=== PATIENT | male | born 1935 | race Caucasian/White ===

== ENCOUNTER 2020-07-25 12:23 | Outpatient (CLI) | payer MEDICARE, OTHER, SELFPAY ==
--- NOTE | ~2020-07-25 | XR_ITS ---
EXAMINATION: XR shoulder RT min 2V DATE: 07/25/2020 12:45 INDICATION: Right shoulder pain. TECHNIQUE: 4 views of right shoulder were obtained. COMPARISON: None. FINDINGS: Bone alignment is normal. No fracture. There is mild osteoarthritis of acromioclavicular michelle int and glenohumeral joint. Pacer wires overlie the heart. IMPRESSION: 1. Mild polyarticular osteoarthritis. Reviewed, dictated and finalized at location A. IAC NURSE
== END 2020-07-25 12:24 | disposition home or self-care (01) ==
PROVIDERS: PCP Nurse Practitioner Family; Visit Provider Nurse Practitioner Family
DX: M19.011 Primary osteoarthritis, right shoulder (principal)
CPT/HCPCS: 73030

== ENCOUNTER 2020-10-14 10:01 | Emergency (ER) | payer MEDICARE, OTHER, SELFPAY ==
--- NOTE | ~2020-10-14 | XR_ITS ---
XR chest 1V portable DATE: 10/14/2020 10:32 INDICATION: Shortness of breath, wheezing and weakness for 2 days TECHNIQUE: Portable AP chest on 10/31/2020 1027 hours COMPARISON: 09/12/2017 two-view chest FINDINGS: Left-sided dual-lead pacemaker device with leads overlying right atrium and right ventricle . Normal heart size. Aortic calcification. No pulmonary infiltrate or consolidation, pleural effusion or pulmonary vascular congestion or pneumo thorax. Degenerative spurring of the thoracic spine. IMPRESSION: No active cardiac pulmonary disease Aortic atherosclerosis Dual-lead left-sided pacemaker Reviewed, dictated and finalized at location A.
[2020-10-14 10:04] VITALS: BP 128/76; PULSE 94; RESP 18; TEMP 36.7; O2SAT 99
[2020-10-14 10:53] LABS: Basophils Percent Auto 0.1 % (0.2-1.2); Eosinophils Absolute Auto 0.2 K/mm3 (0-0.3); Eosinophils Percent Auto 1.1 % (0-4.4); Hematocrit 45.8 % (42.0-52.0); Hemoglobin 15.4 g/dL (14.0-18.0); Immature Granulocyte Absolute 0.07 K/mm3 (0.00-0.031); Immature Granulocyte Percent A 0.5 % (0-0.5); Lymphocytes Absolute Auto 4.05 K/mm3 (0.9-3.2); Lymphocytes Percent Auto 28.6 % (18.3-44.2); Mean Corpuscular HGB Conc 33.6 g/dl (32-36); Mean Corpuscular Hemoglobin 34.7 pg (26-34); Mean Corpuscular Volume 103.2 fl (80-100); Mean Platelet Volume 9.9 fl (7.4-10.4); Monocytes Absolute Auto 1.2 K/mm3 (0.1-0.6); Monocytes Percent Auto 8.1 % (2.6-8.5); Neutrophils Absolute Auto 8.7 K/mm3 (1.3-6.7); Neutrophils Percent Auto 61.6 % (45.5-73.1); Platelet Count Result 190 k/mm3 (150-375); Red Blood Count 4.44 M/mm3 (4.6-6.20); Red Cell Distribution Width 13.3 % (11.5-14.5); White Blood Count 14.1 K/mm3 (4.5-10.0)
--- NOTE | 2020-10-14 10:58 | ECG_ITS ---
Measurements Intervals [place] Rate: 87 P: [place]: 0 QRS: 3 QRSD: 149 T: 130 QT: 399 QTc: 481 Interpretive Statements SINUS RHYTHM FREQUENT ATRIAL PREMATURE COMPLEXES LEFT BUNDLE BRANCH BLOCK ABNORMAL ECG Electronically Signed On 10-14-2020 11:34:15 CDT by Ace Block D.O.
[2020-10-14 11:03] LABS: Alanine Aminotransferase 42 U/L (4-50); Albumin Level 4.2 g/dL (3.5-5.1); Alkaline Phosphatase 82 U/L (38-126); Anion Gap 9 mmol/L (8-16); Aspartate Amino Transferase 159 U/L (17-59); Bilirubin,Total 1.4 mg/dL (0.2-1.3); Blood Urea Nitrogen 22 mg/dL (9-20); Carbon Dioxide 25 mmol/L (22-30); Chloride 107 mmol/L (98-107); Estimated CRCL calculation 55 ml/min; Estimated Glomerular Filt Rate > 60; Glucose 128 mg/dL (75-110); Sodium 141 mmol/L (137-145)
[2020-10-14 11:11] LABS: NT Pro B Type Natriuretic Pept 328 PG/ML (5-100)
--- NOTE | 2020-10-14 11:12 | ED.GENADULT ---
HPI - General Adult General Chief complaint: Shortness of Breath/Dyspnea Stated complaint: SOB Time Seen by Provider: 10/14/20 10:13 Source: patient and family (son &) Mode of arrival: ambulatory Limitations: other (Patient is a poor historian) History of Present Illness HPI narrative: Patient with history of a pacemaker and prostate cancer that is in remission presents with chief complaint of weakness over the past 2 days. states that he normally does into the basement every day and watches TV but yesterday he stated that he felt that he could not make it to the basement so he sat in the living room and needed assistance going back to his room. Patient states this morning he feels a bit weak so he told his family he was short of breath and they called the ambulance however he states that he was not actually short of breath. Patient denies chest pain, dizziness, falls, head injury, nausea, vomiting, diarrhea, cough, fever, chills or any other symptoms. Patient denies unilateral deficits or speech issues. Family states that patient's mentation has been at his baseline over the past few days without any new deficits. Because of patient's prostate cancer patient uses catheter to urinate. Related Data Home Medications Medication Instructions Recorded Confirmed amlodipine 2.5 10/14/20 Allergies Allergy/AdvReac Type Severity Reaction Status Date / Time No Known Allergies Allergy Verified 04/16/17 13:32 Review of Systems Review of Systems: Narrative: CONSTITUTIONAL: Reports fatigue denies fever, chills, or sweats. EYES: Denies visual changes, redness, or discharge. ENT: Denies rhinorrhea, congestion, sore throat, or otalgia. CARDIOVASCULAR: Denies chest pain, palpitations, or edema. RESPIRATORY: Denies cough or dyspnea. GASTROINTESTINAL: Denies abdominal pain, nausea, vomiting, or diarrhea. GENITOURINARY: Denies dysuria or hematuria. SKIN: Denies rash or itching. MUSCULOSKELETAL: Denies back pain, joint pain, or myalgia. NEUROLOGIC: Denies headache, numbness, dizziness, or extremity weakness. PSYCHIATRIC: Denies anxiety or depression. [facility] Past Medical History Medical History (Updated 10/14/20 @ 13:37 by Gideon Kaur PA-C) Prostate cancer Exam Narrative: Exam Narrative: GENERAL: Well-appearing, well-nourished, and in no acute distress. Patient is a poor historian. HEAD: Normocephalic, atraumatic. No hematomas or lacerations. EYES: PERRLA and EOMI. NECK: Supple. No adenopathy or masses. CHEST: Clear to auscultation. No respiratory distress. No wheezes rales or rhonchi. No tachypnea. Patient speaking without signs of shortness of breath or difficulty. HEART: Regular rate with irregular rhythm. ABDOMEN: Soft, nontender, nondistended, normal active bowel sounds. EXTREMITIES: Normal range of motion. No edema. SKIN: Warm, dry, no rash. NEURO: No focal deficits. Alert and oriented x3. Speech is clear and appropriate. No unilateral deficits or extremity weakness. PSYCH: Normal mood and affect. Course Vital Signs Vital signs: Vital Signs Temperature 98.1 F 10/14/20 10:04 Pulse Rate 94 10/14/20 10:04 Respiratory Rate 18 10/14/20 10:04 Blood Pressure 128/76 10/14/20 10:04 Pulse Oximetry 99 10/14/20 10:04 Temperature 98.1 F 10/14/20 10:04 Pulse Rate 77 10/14/20 11:56 Respiratory Rate 18 10/14/20 10:04 Blood Pressure 137/62 10/14/20 11:56 Pulse Oximetry 99 10/14/20 10:04 Medical Decision Making MDM Narrative Medical decision making narrative: Patient is a poor historian. Patient and his family believes he has a history of A. fib. Patient had a pacemaker placed a few years ago, but is not sure if it is because of afib or bradycardia. Patient takes amlodipine daily and a baby aspirin at night but is not on any blood thinners. Patient denies feeling dizzy, weak, having chest pain or shortness of breath. Patient denies any signs of acute illness. Patient is not hyp
--- NOTE | 2020-10-14 11:30 | PC.NURSE ---
Regarding cath, first attempt ended after failure to advance past prostate (potentially). Withdrew coude from pyxis and attempted again, found success.
[2020-10-14 11:37] LABS: Add Urine Microscopic? YES; Appearance Urine Cloudy (Clear); Bacteria Urine 4+ /hpf; Bilirubin Urine Negative (Negative); Blood Urine 1+ (Negative); Color Urine Yellow (Yellow); Glucose Urine UA Negative (Negative); Ketones Urine Trace mg/dL (Negative); Leukocyte Esterase Ur 3+ LEU/UL (Negative); Mucus Urine Rare /lpf; Nitrate Urine Positive (Negative); Protein Urine 1+ mg/dL (Negative); Specific Grav Ur 1.024 (1.001-1.035); Squamous Epithelial Cell Urine Occasional /hpf (Few); Urobilinogen Urine Negative mg/dL (<2.0); WBC Urine 31-50 /hpf
[2020-10-14 11:55] VITALS: BP 113/78; PULSE 102
[2020-10-14 11:56] VITALS: BP 128/59; BP 137/62; PULSE 76; PULSE 77
== END 2020-10-14 13:18 | disposition home or self-care (01) ==
PROVIDERS: Physician Assistant; Emergency Provider Family Medicine; PCP Nurse Practitioner Family
DX: N30.01 Acute cystitis with hematuria (principal); Z95.0 Presence of cardiac pacemaker; Z85.46 Personal history of malignant neoplasm of prostate; Z79.82 Long term (current) use of aspirin; I49.1 Atrial premature depolarization; I44.7 Left bundle-branch block, unspecified; R06.02 Shortness of breath
CPT/HCPCS: 36415; 51701; 71045; 80053; 81001; 83880; 85025; 87077; 87086; 87088; 87186; 93005; 99283

== ENCOUNTER 2022-10-27 09:34 | Emergency (ER) | payer MEDICARE, OTHER, SELFPAY ==
[2022-10-27] VITALS (19 sets, daily range): BP systolic 98–119; BP diastolic 51–73; PULSE 68–89; RESP 15–24; TEMP 36.4; O2SAT 93–100
--- NOTE | ~2022-10-27 | CT_ITS ---
EXAMINATION: CTA chest PE protocol DATE: 10/27/2022 11:32 INDICATION: Left-sided chest pain TECHNIQUE: Computed tomography angiography (CTA) of the chest was performed with 100 mL Omnipaque-350 intravenous contrast timed to evaluate the pulmonary arteries. Coronal maximum intensity projection 3D-reconstructions were created by the technologist. The dose-length product (DLP) was 706.83 mGy-cm. Automated exposure control and iterative reconstruction technique were employed. COMPARISON: None. FINDINGS: The pulmonary arteries are well-opacified. Respiratory motion artifact limits the examinati on. No central pulmonary embolism is identified. There is a small to moderate size right pleural effu tarun with associated passive atelectasis in the right lung. There appear to be subpleural reticular a nd groundglass opacities bilaterally. There is a 7 mm nodule in the right middle lobe. No pathologica lly enlarged thoracic lymph nodes are identified. The heart size is normal. There is calcified lainez ry artery atherosclerosis. There is moderate thoracic spondylosis. IMPRESSION: 1. No central pulmonary embolus identified. Sensitivity for peripheral emboli is decreased by respira tory motion. 2. Xfwkx-oa-pgljerwi size right pleural effusion with associated passive atelectasis in the right roselyn g. 3. Findings suggestive of chronic interstitial lung disease in a pattern of nonspecific interstitial pneumonia (NSIP). 4. 7 mm nodule of the right middle lobe. Follow-up CT in 6-12 months is recommended. Reviewed, dictated and finalized at location A. IMPRESSION: 1. No central pulmonary embolus identified. Sensitivity for peripheral emboli i s decreased by respiratory motion. 2. Xvvtc-wq-ylvsxxvd size right pleural effusion with associated passive atelec tasis in the right lung. 3. Findings suggestive of chronic interstitial lung disease in a pattern of non specific interstitial pneumonia (NSIP). 4. 7 mm nodule of the right middle lobe. Follow-up CT in 6-12 months is recomme nded.
[2022-10-27 10:50] LABS: Basophils Percent Auto 0.2 % (0.2-1.2); Eosinophils Absolute Auto 0.7 K/mm3 (0-0.3); Eosinophils Percent Auto 5.4 % (0-4.4); Hematocrit 40.3 % (42.0-52.0); Hemoglobin 13.5 g/dL (14.0-18.0); Immature Granulocyte Absolute 0.07 K/mm3 (0.00-0.031); Immature Granulocyte Percent A 0.5 % (0-0.5); Lymphocytes Percent Auto 22.5 % (18.3-44.2); Mean Corpuscular HGB Conc 33.5 g/dl (32-36); Mean Corpuscular Hemoglobin 34.7 pg (26-34); Mean Corpuscular Volume 103.6 fl (80-100); Mean Platelet Volume 9.8 fl (7.4-10.4); Monocytes Absolute Auto 0.9 K/mm3 (0.1-0.6); Monocytes Percent Auto 6.8 % (2.6-8.5); Neutrophils Absolute Auto 8.9 K/mm3 (1.3-6.7); Neutrophils Percent Auto 64.6 % (45.5-73.1); Platelet Count Result 277 k/mm3 (150-375); Red Blood Count 3.89 M/mm3 (4.6-6.20); Red Cell Distribution Width 13.2 % (11.5-14.5); White Blood Count 13.8 K/mm3 (4.5-10.0)
[2022-10-27 11:00] LABS: Alanine Aminotransferase 30 U/L (6-50); Alkaline Phosphatase 66 U/L (38-126); Anion Gap 3 mmol/L (8-16); Aspartate Amino Transferase 31 U/L (17-59); Bilirubin,Total 0.7 mg/dL (0.2-1.3); Blood Urea Nitrogen 19 mg/dL (9-20); Calcium 8.2 mg/dL (8.4-10.2); Carbon Dioxide 29 mmol/L (22-30); Chloride 104 mmol/L (98-107); Estimated CRCL calculation 64 ml/min; Estimated Glomerular Filt Rate > 60; Glucose 116 mg/dL (65-110); Potassium 4.2 mmol/L (3.4-5.0); Sodium 136 mmol/L (137-145)
--- NOTE | 2022-10-27 11:06 | ECG_ITS ---
Measurements Intervals [place] Rate: 85 P: -22 DE: 180 QRS: -79 QRSD: 154 T: 77 QT: 426 QTc: 508 Interpretive Statements NORMAL SINUS RHYTHM WITH A POSSIBLE eLECTRONIC VENTRICULAR PACEMAKER VERSUS LBBB COMPARED TO ECG 10/14/2020 10:06:37 NO SIGNIFICANT CHANGES Electronically Signed On 10-27-2022 19:17:20 CDT by Nkechi Alegre M.D.
[2022-10-27 11:12] LABS: NT Pro B Type Natriuretic Pept 275 pg/mL (19.9-100); Troponin I < 0.012 ng/mL (0.000-0.034)
[2022-10-27 11:35] LABS: INR 1.1
[2022-10-27 11:36] LABS: Partial Thromboplastin Time 28.3 SECONDS (22.3-36.8)
--- NOTE | 2022-10-27 14:28 | ED.GENADULT ---
HPI - General Adult General Chief complaint: Chest Pain Stated complaint: CP Time Seen by Provider: 10/27/22 09:39 History of Present Illness HPI narrative: Patient is an 87-year-old male with history of dementia who presents ER with concerns for possible pulmonary embolism by the custodial. It is reported patient has a left upper extremity DVT and that he had reported some left-sided chest pain today and they are concerned that it had embolized. Patient is oriented x2. Has no complaints of pain at this time and is in no distress. He has some mild discomfort over the left lateral chest wall with palpation. He has no dyspnea. Family present report he had a brain bleed and was seen at [facility]. Thus he is no longer on any antiplatelet or or anticoagulants. 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 Related Data Home Medications Medication Instructions Recorded Confirmed acetaminophen 500 mg tablet 500 mg PO Q4H PRN 10/25/22 10/25/22 (Tylenol Extra Strength) furosemide 20 mg tablet (Lasix) 20 mg PO QAM 10/25/22 10/25/22 gabapentin 100 mg capsule 100 mg PO QHS 10/25/22 10/25/22 Allergies Allergy/AdvReac Type Severity Reaction Status Date / Time No Known Allergies Allergy Verified 10/27/22 10:42 Review of Systems Review of Systems: ROS unobtainable: Yes unobtainable due to mental status PMFSH Past Medical History Medical History (Updated 10/27/22 @ 14:46 by Fareed Escalante MD) Dementia Hyperlipidemia Hypertension Myocardial infarction Nontraumatic chronic subdural hemorrhage Prostate cancer Exam Narrative: GENERAL: Chronically ill-appearing, well-nourished, and in no acute distress. HEAD: Normocephalic, atraumatic. EYES: PERRL and EOMI. ENT: Mucous membranes moist. CHEST: Clear to auscultation. No respiratory distress. Mild left chest wall tenderness. HEART: Regular rate and rhythm. Normal peripheral pulses. ABDOMEN: Soft, nontender, nondistended. EXTREMITIES: Normal range of motion. No edema. SKIN: Warm, dry, no rash. NEURO: Alert and oriented x3. PSYCH: Normal mood and affect. Course Course Emergency Course: Patient resting comfortably. No pain in no distress. Patient making jokes. Daughter is at bedside. Informed that there is no PE on the imaging study. There is chronic lung changes and pleural effusion. Recommend patient follow-up with his doctors in regards to his treatment that occurred at [facility]. No hypoxia here. Vital Signs Vital signs: Vital Signs Temperature 97.6 F 10/27/22 09:30 Pulse Rate 85 10/27/22 09:30 Respiratory Rate 20 10/27/22 09:30 Blood Pressure 104/51 L 10/27/22 09:30 Pulse Oximetry 98 10/27/22 09:30 Oxygen Delivery Room Air 10/27/22 09:30 Temperature 97.6 F 10/27/22 09:30 Pulse Rate 84 10/27/22 10:42 Respiratory Rate 18 10/27/22 10:42 Blood Pressure 107/65 10/27/22 10:42 Pulse Oximetry 94 10/27/22 10:42 Oxygen Delivery Room Air 10/27/22 09:39 Medical Decision Making Vital Signs Vital Signs: Vital Signs Temperature 97.6 F 10/27/22 09:30 Pulse Rate 85 10/27/22 09:30 Respiratory Rate 20 10/27/22 09:30 Blood Pressure 104/51 L 10/27/22 09:30 Pulse Oximetry 98 10/27/22 09:30 Oxygen Delivery Room Air 10/27/22 09:30 Temperature 97.6 F 10/27/22 09:30 Pulse Rate 84 10/27/22 10:42 Respiratory Rate 18 10/27/22 10:42 Blood Pressure 107/65 10/27/22 10:42 Pulse Oximetry 94 10/27/22 10:42 Oxygen Delivery Room Air 10/27/22 09:39 Lab Data 10/27/22 10:44 10/27/22 10:44 Labs: Lab Results 10/27/22 10/27/22 10/27/22 Range/Units 10:44 10:44 10:44 WBC 13.8 H (4.5-10.0) K/mm3 RBC 3.89 L (4.6-6.20) M/mm3 Hgb 13.5 L
== END 2022-10-27 17:45 | disposition home or self-care (01) ==
PROVIDERS: Emergency Provider Emergency Medicine; PCP Nurse Practitioner Family
DX: R07.89 Other chest pain (principal); J90 Pleural effusion, not elsewhere classified; F03.90 Unspecified dementia, unspecified severity, without behavioral disturbance, psychotic disturbance, mood disturbance, and anxiety; I10 Essential (primary) hypertension; E78.5 Hyperlipidemia, unspecified; I82.722 Chronic embolism and thrombosis of deep veins of left upper extremity; I80.8 Phlebitis and thrombophlebitis of other sites; I25.2 Old myocardial infarction; Z85.46 Personal history of malignant neoplasm of prostate; R91.1 Solitary pulmonary nodule; R91.8 Other nonspecific abnormal finding of lung field
CPT/HCPCS: 36415; 71275; 80053; 83880; 84484; 85025; 85610; 85730; 93005; 99284; Q9967

== ENCOUNTER 2022-11-22 13:19 | Emergency (ER) | payer MEDICARE, OTHER, SELFPAY ==
--- NOTE | ~2022-11-22 | CT_ITS ---
EXAMINATION: CT brain wo con DATE: 11/22/2022 14:05 INDICATION: Head injury. TECHNIQUE: Computed tomography (CT) of the head was performed without intravenous contrast. The mA wa s adjusted according to patient size. Iterative reconstruction technique was employed. The dose-lengt h product was 681.00 mGy-cm. COMPARISON: Sinuses CT 04/09/2016 FINDINGS: There is diffuse brain volume loss. There is a subdural hematoma overlying the left frontal and parietal lobes that is predominantly hypodense to hernández matter with maximum thickness of 10 mm. T here are small foci within the hematoma that are isodense or hyperdense to hernández matter. There is a 3. 9 x 2.5 cm arachnoid cyst anterior to left temporal lobe. There are scattered areas of low attenuatio n in the cerebral white matter. There is no acute ischemic infarct or abnormal mass lesion. The ventr icles are normal in size. There are likely changes of ocular lens replacement surgeries. There is muc osal thickening and fluid in the paranasal sinuses. The mastoid air cells are normal. There is cerume n in left external auditory canal. IMPRESSION: 1. Subdural hematoma overlying the left frontal and parietal lobes, most likely subacute. 2. Moderate nonspecific cerebral white matter disease, which likely represents chronic small vessel i schemic disease. Reviewed, dictated and finalized at location E. IMPRESSION: 1. Subdural hematoma overlying the left frontal and parietal lobes, most likely subacute. 2. Moderate nonspecific cerebral white matter disease, which likely represents chronic small vessel ischemic disease.
--- NOTE | ~2022-11-22 | CT_ITS ---
EXAMINATION: CT cervical spine wo con DATE: 11/22/2022 14:05 INDICATION: Head injury. Neck pain. TECHNIQUE: Computed tomography (CT) of the cervical spine was performed without intravenous contrast. Automated exposure control and iterative reconstruction technique were employed. The dose-length pro duct was 271.12 mGy-cm. COMPARISON: None FINDINGS: There is mild scarring at right lung apex. There is 7 degrees levocurvature of cervical spi ne. Vertebral body heights are normal. There is moderately decreased disc height at C5-C6 and C6-C7. The following disc levels are specifically discussed: C2-C3: There is no uncovertebral joint osteoarthritis. There is severe bilateral facet joint osteoart hritis. There is no neural foraminal stenosis. There is no central canal stenosis. C3-C4: There is mild bilateral uncovertebral joint osteoarthritis. There is severe bilateral facet michelle int osteoarthritis. There is mild bilateral neural foraminal stenosis. There is mild central canal st enosis. C4-C5: There is moderate right uncovertebral joint osteoarthritis. There is severe bilateral facet michelle int osteoarthritis. There is mild right neural foraminal stenosis. There is no central canal stenosis . C5-C6: There is severe right and mild left uncovertebral joint osteoarthritis. There is severe right and moderate left facet joint osteoarthritis. There is moderate right neural foraminal stenosis. Ther e is mild central canal stenosis. C6-C7: There is mild right and moderate left uncovertebral joint osteoarthritis. There is severe bila teral facet joint osteoarthritis. There is mild left neural foraminal stenosis. There is mild central canal stenosis. C7-T1: There is no uncovertebral joint osteoarthritis. There is severe bilateral facet joint osteoart hritis. There is no neural foraminal stenosis. There is no central canal stenosis. IMPRESSION: 1. No fracture. 2. Moderate cervical spondylosis. Reviewed, dictated and finalized at location E.
--- NOTE | ~2022-11-22 | XR_ITS ---
EXAMINATION: [id number] DATE: 11/22/2022 14:55 INDICATION: Right knee pain. Fall. TECHNIQUE: 2 lateral views of right knee were obtained. COMPARISON: None. FINDINGS: Bone alignment is normal. No fracture. There is moderate osteoarthritis of patellofemoral c ompartment. No knee joint effusion. IMPRESSION: 1. Moderate osteoarthritis of patellofemoral compartment. Note that the medial and lateral compartmen ts are not well evaluated on these lateral views. Reviewed, dictated and finalized at location E. IMPRESSION: 1. Moderate osteoarthritis of patellofemoral compartment. Note that the medial and lateral compartments are not well evaluated on these lateral views.
[2022-11-22 13:25] VITALS: BP 122/58; PULSE 87; RESP 22; TEMP 36.4; O2SAT 96
[2022-11-22 13:46] VITALS: BP 122/49; PULSE 84; RESP 8; O2SAT 96
--- NOTE | 2022-11-22 14:32 | ED.FALL ---
HPI - Fall General Chief Complaint: Fall Stated Complaint: fall Time Seen by Provider: 11/22/22 13:33 Source: patient Mode of arrival: EMS Limitations: no limitations History of Present Illness HPI Narrative: This is a 87-year-old male with PMH of subdural hematoma, dementia, A-fib, indwelling Ruth catheter, who presents to the ED via EMS from [facility] with chief complaint of a fall. per the caregiver who was there at the time, patient did not have any LOC. States that she found him on the ground while she was leaving to get something from out of his room. She feels that patient is at his normal mental status which is confused with dates and situation at baseline. When I asked patient about what caused him to fall, states he tripped while he was trying to get across the room. Patient's caregiver states that they have noticed him trying to throw himself out of the chair. Patient reports some neck pain. Denies any further location of pain. Per chart review patient has a subdural hematoma diagnosed several months ago. Caregiver states that he has Ruth catheter due to chronic UTIs. Related Data Home Medications Medication Instructions Recorded Confirmed acetaminophen 500 mg tablet 500 mg PO Q4H PRN 10/25/22 11/20/22 (Tylenol Extra Strength) furosemide 20 mg tablet (Lasix) 20 mg PO QAM 10/25/22 11/20/22 gabapentin 100 mg capsule 100 mg PO QHS 10/25/22 11/20/22 Allergies Allergy/AdvReac Type Severity Reaction Status Date / Time No Known Allergies Allergy Verified 10/27/22 10:42 Review of Systems Review of Systems: CONSTITUTIONAL: Denies fever, chills, or sweats. EYES: Denies visual changes, redness, or discharge. ENT: Denies rhinorrhea, congestion, sore throat, or otalgia. CARDIOVASCULAR: Denies chest pain, palpitations, or edema. RESPIRATORY: Denies cough or dyspnea. GASTROINTESTINAL: Denies abdominal pain, nausea, vomiting, or diarrhea. GENITOURINARY: Denies dysuria or hematuria. SKIN: Denies rash or itching. MUSCULOSKELETAL: See HPI NEUROLOGIC: Denies headache, numbness, dizziness, or weakness. PSYCHIATRIC: Denies anxiety or depression. [facility] Past Medical History Medical History (Updated 11/22/22 @ 15:31 by Jesus Mcneal PA-C) Dementia Hyperlipidemia Hypertension Myocardial infarction Nontraumatic chronic subdural hemorrhage Prostate cancer Social History Social History Smoking status: Smoker, status unknown Exam Narrative: GENERAL: Well-appearing, well-nourished, and in no acute distress. HEAD: Normocephalic, atraumatic. EYES: PERRLA and EOMI. ENT: Nares clear, no rhinorrhea or epistaxis. Mucous membranes moist. Oropharynx without tonsillar hypertrophy exudate or other lesions. NECK: Supple. No adenopathy or masses. CHEST: No respiratory distress. Clear to auscultation. No wheezes rales or rhonchi HEART: Regular rate and rhythm. No murmur heard. Normal peripheral pulses. ABDOMEN: Soft, nontender, nondistended, normal active bowel sounds. EXTREMITIES: Normal range of motion. No edema. SKIN: Warm, dry, no rash. NEURO: Alert and oriented x1, this is baseline. No focal deficits. Cranial nerves II through XII intact. Moves all 4 extremities spontaneously. PSYCH: Normal mood and affect. Course Vital Signs Vital signs: Vital Signs Temperature 97.5 F L 11/22/22 13:25 Pulse Rate 87 11/22/22 13:25 Respiratory Rate 22 H 11/22/22 13:25 Blood Pressure 122/58 L 11/22/22 13:25 Pulse Oximetry 96 11/22/22 13:25 Oxygen Delivery Room Air 11/22/22 13:25 Temperature 97.5 F L 11/22/22 13:25 Pulse Rate 73 11/22/22 15:45 Respiratory Rate 22 H 11/22/22 15:45 Blood Pressure 126/59 L 11/22/22 15:45 Pulse Oximetry 99 11/22/22 15:45 Oxygen Delivery Room Air 11/22/22 13:25 MDM - Fall MDM Narrative Medical decision making narrative: This is an 87-year-old male who presents the ED with chief complaint of a fall. He is coming f
[2022-11-22 15:45] VITALS: BP 126/59; PULSE 73; RESP 22; O2SAT 99
--- NOTE | 2022-11-22 15:51 | PC.NURSE ---
attempted to call report to [facility] upon pt discharge. placed on hold for 6 min. no report was given.
== END 2022-11-22 16:35 ==
PROVIDERS: Emergency Provider Physician Assistant; PCP Nurse Practitioner Family
DX: S19.9XXA Unspecified injury of neck, initial encounter (principal); I48.91 Unspecified atrial fibrillation; F03.90 Unspecified dementia, unspecified severity, without behavioral disturbance, psychotic disturbance, mood disturbance, and anxiety; E78.5 Hyperlipidemia, unspecified; I10 Essential (primary) hypertension; I25.2 Old myocardial infarction; Z85.46 Personal history of malignant neoplasm of prostate; M17.11 Unilateral primary osteoarthritis, right knee; M47.812 Spondylosis without myelopathy or radiculopathy, cervical region; W01.0XXA Fall on same level from slipping, tripping and stumbling without subsequent striking against object, initial encounter
CPT/HCPCS: 70450; 72125; 73560; 99284

== ENCOUNTER 2022-12-20 18:19 | Emergency (ER) | payer MEDICARE, OTHER, SELFPAY ==
--- NOTE | ~2022-12-20 | CT_ITS ---
EXAMINATION: CT brain wo con INDICATION: Head injury, history of subdural hematoma COMPARISON: 11/22/2022 TECHNIQUE: Standard unenhanced head CT. The dose-length product (DLP) was 2043.00 mGy-cm. The mA was adjusted according to patient size. Iterative reconstruction technique was employed. FINDINGS: Mild motion artifact persists despite multiple repeat attempts. There is a subacute subdura l hematoma overlying the left frontal and parietal lobes without significant change. There is no acut e intraparenchymal hemorrhage. No evidence of mass lesion. No evidence of acute infarction. And arach noid cyst anterior to the left temporal lobe is grossly unchanged. There is moderate periventricular and subcortical hypodensity probably related to small vessel ischemic disease. There is mild prominen ce of the sulci and ventricles related to cerebral atrophy. Intracranial calcified cerebral atheroscl erosis is noted. There is no mass effect or midline shift. Changes in the globes are likely from ocul ar lens surgery. There is mild mucosal thickening of the paranasal sinuses. IMPRESSION: 1. Subacute subdural hematoma overlying the left frontoparietal lobes without significant change. 2. Age related findings. Reviewed, dictated and finalized at location F. IMPRESSION: 1. Subacute subdural hematoma overlying the left frontoparietal lobes without s ignificant change. 2. Age related findings.
--- NOTE | ~2022-12-20 | CT_ITS ---
EXAMINATION: CT cervical spine wo con DATE: 12/20/2022 20:55 INDICATION: Head injury TECHNIQUE: Computed tomography (CT) of the cervical spine was performed without intravenous contrast. The dose-length product (DLP) was 289.75 mGy-cm. Automated exposure control and iterative reconstruc tion technique were employed. COMPARISON: 11/22/2022 FINDINGS: The vertebral body heights and alignment are normal. There is moderate loss of intervertebr al disc space height at C5-6 and C6-7. The odontoid process is intact. There is no fracture. The prev ertebral soft tissues are normal. 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 IMPRESSION: 1. Moderate cervical spondylosis without acute findings or significant interval change. Reviewed, dictated and finalized at location F.
[2022-12-20 18:18] VITALS: BP 109/62; PULSE 101; RESP 18; O2SAT 99
[2022-12-20 18:54] VITALS: BP 91/72; PULSE 90; RESP 14; O2SAT 98
[2022-12-20 19:28] VITALS: BP 112/57; PULSE 91; RESP 21; O2SAT 99
--- NOTE | 2022-12-20 21:26 | PC.NURSE ---
Pts daughter Sapna's number. [phone].
--- NOTE | 2022-12-20 22:14 | ED.GENADULT ---
HPI - General Adult General Chief complaint: Fall Stated complaint: fall Time Seen by Provider: 12/20/22 20:01 History of Present Illness HPI narrative: Patient 87-year-old gentleman who presents the emergency department with chief complaint of fall. Patient had a chronic subdural and today had a ground-level fall at the skilled nursing the patient had no loss of consciousness patient currently has no complaints Related Data Home Medications Medication Instructions Recorded Confirmed acetaminophen 500 mg tablet 500 mg PO Q4H PRN 10/25/22 11/20/22 (Tylenol Extra Strength) furosemide 20 mg tablet (Lasix) 20 mg PO QAM 10/25/22 11/20/22 gabapentin 100 mg capsule 100 mg PO QHS 10/25/22 11/20/22 Allergies Allergy/AdvReac Type Severity Reaction Status Date / Time No Known Allergies Allergy Verified 10/27/22 10:42 Review of Systems Review of Systems: A 10 system review of systems was completed on the patient and is negative except for what is stated in the HPI. Nursing and ancillary documentation was reviewed. [facility] Past Medical History Medical History Dementia Hyperlipidemia Hypertension Myocardial infarction Nontraumatic chronic subdural hemorrhage Prostate cancer Social History Social History Smoking status: Smoker, status unknown Exam Narrative: GENERAL: Well-appearing, well-nourished, and in no acute distress. HEAD: Normocephalic, atraumatic. EYES: PERRLA and EOMI. ENT: Nares clear, no rhinorrhea or epistaxis. Mucous membranes moist. NECK: Supple. CHEST: Clear to auscultation. No respiratory distress. HEART: Regular rate and rhythm. No murmur heard. Normal peripheral pulses. ABDOMEN: Soft, nontender, nondistended, normal active bowel sounds. EXTREMITIES: Normal range of motion. No edema. SKIN: Warm, dry, no rash. NEURO: No focal deficits. Alert and confused at baseline. PSYCH: Normal mood and affect. Course Vital Signs Vital signs: Vital Signs Pulse Rate 101 H 12/20/22 18:18 Respiratory Rate 18 12/20/22 18:18 Blood Pressure 109/62 12/20/22 18:18 Pulse Oximetry 99 12/20/22 18:18 Oxygen Delivery Room Air 12/20/22 18:18 Pulse Rate 91 12/20/22 19:28 Respiratory Rate 21 H 12/20/22 19:28 Blood Pressure 112/57 L 12/20/22 19:28 Pulse Oximetry 99 12/20/22 19:28 Oxygen Delivery Room Air 12/20/22 18:18 Medical Decision Making MDM Narrative Medical decision making narrative: Differential diagnosis includes head injury, new subdural or intracranial hemorrhage. CT head was obtained which showed?Subacute subdural hematoma overlying the left frontoparietal lobes without significant change. 2. Age related findings. CT C-spine showed no evidence of fracture Vital Signs Vital Signs: Vital Signs Pulse Rate 101 H 12/20/22 18:18 Respiratory Rate 18 12/20/22 18:18 Blood Pressure 109/62 12/20/22 18:18 Pulse Oximetry 99 12/20/22 18:18 Oxygen Delivery Room Air 12/20/22 18:18 Pulse Rate 91 12/20/22 19:28 Respiratory Rate 21 H 12/20/22 19:28 Blood Pressure 112/57 L 12/20/22 19:28 Pulse Oximetry 99 12/20/22 19:28 Oxygen Delivery Room Air 12/20/22 18:18 Discharge Plan Discharge Clinical Impression: Ground-level fall Patient Disposition: NH Shelter/Asst Living Condition: Stable Instructions: Antibiotic Form, Head Injury (ED), Fall Prevention (ED) Prescriptions: No Action acetaminophen [Tylenol Extra Strength] 500 mg tablet 500 mg PO Q4H PRN gabapentin 100 mg capsule 100 mg PO QHS furosemide [Lasix] 20 mg tablet 20 mg PO QAM tramadol 50 mg tablet 50 mg PO Q6H PRN (Reason: pain) Qty: 120 0RF Follow-up/Referrals: Christy,Mary Ellen Bruner TELEGRAPHIC SERVICE DISPATCHER-BC [Primary Care Provider] - Time of Disposition: 22:16
[2022-12-20 23:19] VITALS: BP 119/53; PULSE 87; RESP 18; O2SAT 99
--- NOTE | 2022-12-20 23:20 | PC.NURSE ---
Report given to Dank at [facility]. Pt waiting for transport back to [facility] at this time.
== END 2022-12-20 23:38 ==
PROVIDERS: Emergency Provider Emergency Medicine; PCP Nurse Practitioner Family
DX: F03.90 Unspecified dementia, unspecified severity, without behavioral disturbance, psychotic disturbance, mood disturbance, and anxiety (principal); E78.5 Hyperlipidemia, unspecified; I10 Essential (primary) hypertension; I25.10 Atherosclerotic heart disease of native coronary artery without angina pectoris; W05.0XXA Fall from non-moving wheelchair, initial encounter
CPT/HCPCS: 70450; 72125; 99284